=== PATIENT | male | born 1970 | race Caucasian/White ===

== ENCOUNTER → 2019-09-15 | Outpatient (CLI) | payer OTHER ==
[~2019-09-15] MED LIST: ADDERALL 10 MG10 MG
[2019-09-15 12:48] LABS: CREATININE 0.8 mg/dL (0.6-1.3)
[2019-09-15 13:49] VITALS: BP 120/72
[2019-09-15 14:20] VITALS: BP 122/76
== END ==
LOC: M.LAB 08:30 → M.CT 09:30
PROVIDERS: Internal Medicine
DX: R07.9 Chest pain, unspecified (principal); R94.31 Abnormal electrocardiogram [ECG] [EKG]